=== PATIENT | female | born 1995 | race Caucasian/White ===

== ENCOUNTER → 2016-08-13 11:30 | Observation (INO) ==
--- NOTE | 2016-08-12 19:46 | OB/GYN History & Physical ---
Date of Encounter: 08/12/16 Time of Encounter: 19:38 Assessment and Plan (1) before 20 weeks with retention of fetus Current visit: No Status: Acute Pt monitoring cytotec induction pain control IVF, supportive care (2) demise Current visit: No Status: Acute (3) Second trimester Current visit: No Status: Acute (4) Spontaneous miscarriage Current visit: No Status: Acute History of Present Illness Chief complaint: demise HPI: Ms. Canales is a 21 year old female who presented to the ER saturday with hroughout the day severe cramping and abdominal pain. The pain started in the morning and was intermittent throughout the day decreasing in severity as the day went on. demise was confirmed by US in the ER. Prior to this pt denies any complications with this or previous , no history of abnormal PAP, abd surgery or STI. No drug or alcohol use. Pt here for passage of POC via cytotec induction. Pt denies headache, change in vision, CP, SOB, N/V , LE edema and has no other complaints at this time. Past Med Surg Social Fam HX - Past Medical History Medical history: no medical history Psychiatric history: no psych history - Past Surgical History Surgical History: no surgical history - Social History Smoking Status: Never smoker Smokeless Tobacco Status: No Alcohol use: none Drug use: none Obstetrical History - Pregnancies : 3 Para: 1 Ab's: 1 - History/Complications History/Complications: 14 week demise Medications and Allergies Ibuprofen [Advil] 400 mg PO Q6H PRN 10/25/15 [History] Allergies No Known Allergies Allergy (Verified 02/25/15 11:44) Review of System OB All systems PM: reviewed and no additional remarkable complaints except as stated Exam - Constitutional Constitutional: well developed, well nourished, no acute distress, average body habitus - HEENT HEENT: EOMI, Mucus Membranes Moist - Neck Neck exam: full ROM - Lungs Respiratory exam: CTAB - Cardiovascular Cardiovascular exam: RRR - Abdomen Abdomen: Present: bowel sounds normal, gravid - Extremities Extremities exam: warm - Uterus Uterus exam: Present: normal size Results All other labs normal.
[2016-08-12 21:12] LABS: Hematocrit 34.5 % (35.3-44.9); Hemoglobin 11.7 g/dL (11.5-15.4); Mean Corpuscular HGB Conc 33.9 g/dL (31.6-35.5); Mean Corpuscular Volume 85.4 fL (83.0-100.0); Mean Platelet Volume 10.3 fL (9.4-12.4); Platelet Count 174 K/mcL (140-400); Red Blood Count 4.04 M/mcL (3.82-4.97); Red Cell Distribution Width 13.8 % (11.5-14.5)
[2016-08-12] MEDS: miSOPROStol 100 MCG TABLET PO SCH (21:29)
[2016-08-13] MEDS: Ondansetron 4 MG/2 ML VIAL IVP PRN ×2 (01:07→07:42)
--- NOTE | 2016-08-13 01:34 | OB Labor Progress Note ---
Date of Encounter: 08/13/16 Time of Encounter: 01:33 Labor Progress Note - Subjective Subjective: Pt has had more severe cramping and had Dilaudid that caused nausea. - Heart Tones Heart Tones: No - Interventions Interventions: will give ROLL TENSION TESTER - Plan Plan: Cont. cytotec.
[2016-08-13] MEDS: miSOPROStol 100 MCG TABLET PO SCH (04:16)
--- NOTE | 2016-08-13 05:37 | OB Labor Progress Note ---
Date of Encounter: 08/13/16 Time of Encounter: 05:35 Labor Progress Note - Subjective Subjective: Pt's pain has been a little better s/p ambiens. She has AUTO WINDER, she has been having some spotting. - Heart Tones Heart Tones: none - Interventions Interventions: S/p cytotec 600 mg x 2, last at 04:19 - Plan Plan: Cont. induction of 14 week demise.
--- NOTE | 2016-08-13 07:46 | Discharge Summary ---
Outpatient Proc Discharge Plan - Plan Prescriptions: Ibuprofen [Motrin] 600 mg PO Q6HR PRN #40 tablet PRN Reason: cramping ClonazePAM [Klonopin] 0.5 mg PO BID PRN #20 tablet PRN Reason: anxiety/grief Norgestimate-Ethinyl Estradiol [Ortho-Cyclen 28 Tablet] 1 each PO DAILY #1 tablet Home Medications: Ibuprofen [Advil] 400 mg PO Q6H PRN 10/25/15 [History] ClonazePAM [Klonopin] 0.5 mg PO BID PRN #20 tablet 08/13/16 [Rx] Ibuprofen [Motrin] 600 mg PO Q6HR PRN #40 tablet 08/13/16 [Rx] Norgestimate-Ethinyl Estradiol [Ortho-Cyclen 28 Tablet] 1 each PO DAILY #1 tablet 08/13/16 [Rx]
[~2016-08-13 11:30] MED LIST: *HR* HYDROmorphone 2 MG/ML SYRINGE IVP PRN; *HR* Morphine 30 MG/ 30 ML PCA IVC PRN; Ibuprofen 600 MG TABLET PO PRN; Ringers Solution, Lactated 1,000 ML IVC SCH; miSOPROStol 100 MCG TABLET PO ONE; miSOPROStol 100 MCG TABLET PO SCH
[2016-08-13 11:39] VITALS: BP 106/55
== END | disposition home or self-care (01) ==
LOC: 1NENULAB
PROVIDERS: ADMIT Obstetrics & Gynecology; ATTEND Obstetrics & Gynecology

== ENCOUNTER 2017-09-04 21:28 | Observation (INO) ==
[2017-09-04] MEDS ORDERED: Ringers Solution, Lactated 1,000 ML ONE (22:25)
[2017-09-04] MEDS ORDERED: Ringers Solution, Lactated 1,000 ML IVC ONE (22:36)
--- NOTE | 2017-09-04 22:46 | OB/GYN Progress Note ---
Date of Encounter: 09/05/17 Time of Encounter: 22:37 - Assessment and Plan (1) 23 weeks gestation of Current Visit: Yes Status: Acute (2) uterine contractions in second trimester, antepartum Current Visit: Yes Status: Acute 1 liter bolus LR CBC Discharge home (3) NST (non-stress test) reactive on surveillance Current Visit: Yes Status: Acute Subjective - Subjective Principal diagnosis: contractions Interval history: Ms. Canales is a 22-year-old 011 at 23 weeks and 3 days gestation with an ANKUR of 12/29/17 by LMP. She presents this evening with complaints of contractions that started while she was at work. 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 She then went home, ate lunch, and went back to work and the contractions continued to be about 10 minutes apart. She drank about 60 ounces of water while at work but admits that she was busy running around, lifting residents, giving them baths, etc. She states since she has been here she hasn't felt many contractions. Last intercourse was this morning. She endorses good FM and denies LOF, vaginal bleeding, TATUM, blurry vision, RUQ pain. Antepartum ROS: movement normal, contractions Objective - Vital Signs Vital Signs: Intake and Output 09/04/17 09/04/17 09/04/17 07:59 15:59 23:59 Other: Weight 81 kg Patient Weight 09/04/17 23:59 Weight 81 kg - Exam FHR: auscultation normal, category 1 Auscultation: bilateral: normal Abdomen: Present: normal appearance, soft, gravid Uterus: Present: normal Comments: VE deferred
[2017-09-04 23:08] LABS: Basophils % 0.1 %; Eosinophils % 0.3 %; Hematocrit 31.2 % (35.3-44.9); Hemoglobin 10.6 g/dL (11.5-15.4); Immature Granulocytes % 0.5 % (0-4); Lymphocytes # 1.8 K/mcL (0.6-4.6); Lymphocytes % 17.2 %; Mean Corpuscular Hemoglobin 30.1 pg (28.0-33.3); Mean Corpuscular Volume 88.6 fL (83.0-100.0); Mean Platelet Volume 10.3 fL (9.4-12.4); Monocytes # 0.7 K/mcL (0.0-1.3); Neutrophils # 7.8 K/mcL (1.6-8.9); Platelet Count 195 K/mcL (140-400); Red Blood Count 3.52 M/mcL (3.82-4.97); Red Cell Distribution Width 13.4 % (11.5-14.5); Segmented Neutrophils % 74.9 %
[2017-09-04 23:09] LABS: Amphetamine Screen,Urine Negative ng/mL (Cutoff=1000); Barbiturate Screen,Urine Negative ng/mL (Cutoff=200); Benzodiazepines Screen,Urine Negative ng/mL (Cutoff=200); Cannabinoid Screen,Urine Negative ng/mL (Cutoff = 50); Cocaine Screen,Urine Negative ng/mL (Cutoff= 300); Opiate Screen,Urine Negative ng/mL (Cutoff=300); Phencyclidine Screen,Urine Negative ng/mL (Cutoff=25)
== END 2017-09-04 23:30 | disposition home or self-care (01) ==
LOC: 1NENULAB
PROVIDERS: ADMIT Advanced Practice Midwife; ATTEND Advanced Practice Midwife

== ENCOUNTER 2017-11-29 04:34 | Observation (INO) ==
[2017-11-28 17:08] LABS: Bilirubin,Urine Negative (Negative); Blood,Urine Moderate (Negative); Clarity,Urine Cloudy (Clear); Color,Urine Yellow (Yellow); Glucose,Urine (UA) Normal (Normal); Ketones,Urine Negative (Negative); Leukocyte Esterase,Urine Moderate (Negative); Nitrite,Urine Negative (Negative); PH,Urine 6.5 pH Units (5.0-8.0); Protein,Urine Trace mg/dL (Neg-Trace); Specific Gravity,Urine 1.027 (1.010-1.025); Urobilinogen,Urine Normal (Normal)
[2017-11-28 17:10] LABS: Bacteria,Urine Moderate per hpf (None-Few); Hyaline Casts,Urine Few per lpf (None-Few); Squamous Epithelial Cell,Urine Many per lpf (None-Few); WBC,Urine 15-30 per hpf (0-3)
[2017-11-28 17:27] LABS: Amphetamine Screen,Urine Negative ng/mL (Cutoff=1000); Barbiturate Screen,Urine Negative ng/mL (Cutoff=200); Benzodiazepines Screen,Urine Negative ng/mL (Cutoff=200); Cannabinoid Screen,Urine Negative ng/mL (Cutoff = 50); Cocaine Screen,Urine Negative ng/mL (Cutoff= 300); Opiate Screen,Urine Negative ng/mL (Cutoff=300); Phencyclidine Screen,Urine Negative ng/mL (Cutoff=25)
--- NOTE | 2017-11-28 22:13 | OB/GYN History & Physical ---
Date of Encounter: 11/28/17 Time of Encounter: 22:10 Assessment and Plan (1) 35 weeks gestation of Current visit: Yes Status: Acute (2) Uterine contractions Current visit: Yes Status: Acute Admit to labor and delivery Expectant management Penicillin for GBS unknown Nubain if desired Epidural if progresses past 6 cm History of Present Illness Chief complaint: Contractions HPI: Ms. Canales is a 22 year old female 35+4 weeks gestation presents to triage with complaints of contractions since 3:15 this afternoon. He should not reports good movement, denies vaginal bleeding or leaking of fluid. care with Dr. Dumont. course complicated with diet-controlled gestational diabetes. Labs: A+, rubella immune, GBS unknown, all other serologies negative Past Med Surg Social Fam HX - Past Medical History Medical history: no medical history Psychiatric history: no psych history - Past Surgical History Surgical History: no surgical history Additional surgical history: IUD removal - Social History Smoking Status: Never smoker Smokeless Tobacco Status: No Alcohol use: none, rarely Drug use: none - Family History Mother Adopted: [place]: katie peoples Family Member Ethnicity: Non- Twin of Family Member: Yes, Fraternal Living Status: Still Living Hx Family Cardiac Disorders: No Hx Family Respiratory Disorders: No Hx Family Cancer: No Hx Family GI Disorders: No Hx Family Genitourinary Disorders: No Hx Family Endocrine Disorder: No Hx Family Musculoskeletal Disorders: No Hx Family Neuromuscular Disorders: No Hx Family Neurologic Disorders: No Hx Family HEENT Disorders: No Hx Family Autoimmune Disorders: No Hx Family Reproductive Disorders: No Hx Family Psychosocial Disorders: No Hx Family Medical Disorders: No Obstetrical History - Pregnancies : 3 Para: 1 Term: 1 : 0 Ab's: 1 Livin Medications and Allergies Ibuprofen [Advil] 400 mg PO Q6H PRN 10/25/15 [History] Ibuprofen [Motrin] 600 mg PO Q6HR PRN #40 tablet 08/13/16 [Rx] Norgestimate-Ethinyl Estradiol [Ortho-Cyclen 28 Tablet] 1 each PO DAILY #1 tablet 08/13/16 [Rx] clonazePAM [Clonazepam] 0.5 mg PO BID #20 tab.rapdis 08/13/16 [Rx] clonazePAM [Klonopin] 0.5 mg PO BID PRN #20 tablet 08/13/16 [Rx] Ibuprofen [Motrin] 600 mg PO Q8HR PRN #12 tab 01/04/17 [Rx] GuaiFENesin/Dextromethorphan [Robitussin/DM] 5 ml PO Q6HR PRN #120 ml 05/29/17 [ Rx] 3 Allergy/AdvReac Type Severity Reaction Status Date / Time No Known Allergies Allergy Verified 02/25/15 11:44 Exam - Constitutional Constitutional: well developed, well nourished, no acute distress, average body habitus - Neck Neck exam: full ROM - Lungs Respiratory exam: CTAB - Cardiovascular Cardiovascular exam: RRR - Abdomen Abdomen: Present: gravid, non tender - Extremities Extremities exam: normal capillary refill, normal inspection - Vagina Vagina: Present: normal moisture - Cervix Dilation: 4 Effacement: 80 Station: -2 Results Abnormal lab results Urine Clarity Cloudy (Clear) A 11/28/17 16:47 Ur Specific [place] 1.027 (1.010-1.025) H 11/28/17 16:47 Urine Blood Moderate (Negative) H 11/28/17 16:47 Ur Leukocyte Esterase Moderate (Negative) H 11/28/17 16:47 Urine Microscopic RBC 5-15 per hpf (0-3) H 11/28/17 16:47 Urine Microscopic WBC 15-30 per hpf (0-3) H 11/28/17 16:47 Ur Squamous Epith Cells Many per lpf (None-Few) H 11/28/17 16:47 Urine Bacteria Moderate per hpf (None-Few) H 11/28/17 16:47 Ur Culture Indicated? NO. (NO) A 11/28/17 16:47 All other labs normal. - VTE Reasons for not Prescribing Prophylaxis: Treatment not Indicated - Low risk for VTE
[2017-11-28 22:59] LABS: Basophils % 0.2 %; Eosinophils % 0.4 %; Hematocrit 36.1 % (35.3-44.9); Hemoglobin 12.1 g/dL (11.5-15.4); Immature Granulocytes % 0.4 % (0-4); Lymphocytes % 22.1 %; Mean Corpuscular HGB Conc 33.5 g/dL (31.6-35.5); Mean Corpuscular Hemoglobin 28.9 pg (28.0-33.3); Mean Corpuscular Volume 86.2 fL (83.0-100.0); Mean Platelet Volume 10.4 fL (9.4-12.4); Monocytes # 0.7 K/mcL (0.0-1.3); Monocytes % 7.6 %; Neutrophils # 6.3 K/mcL (1.6-8.9); Platelet Count 171 K/mcL (140-400); Red Blood Count 4.19 M/mcL (3.82-4.97); Red Cell Distribution Width 14.4 % (11.5-14.5); Segmented Neutrophils % 69.3 %
[~2017-11-29 04:34] MED LIST changes: -*HR* HYDROmorphone 2 MG/ML SYRINGE IVP PRN; -*HR* Morphine 30 MG/ 30 ML PCA IVC PRN; +*HR* Nalbuphine 10 MG/ML AMPUL IVP PRN; +Famotidine 20 MG/2 ML VIAL IVP PRN; -Ibuprofen 600 MG TABLET PO PRN; +Metoclopramide 10 MG/2 ML VIAL IVP PRN; +Naloxone 0.4 MG/ML INJ IVP PRN; +Ondansetron 4 MG/2 ML VIAL IVP PRN; +Penicillin G Potassium 2,500,000 UNIT in 0.9 % Sodium Chloride 100 ML IVPB SCH; +Penicillin G Potassium 5,000,000 UNIT in 0.9 % Sodium Chloride Mini Bag 100 ML IVPB ONE; -miSOPROStol 100 MCG TABLET PO ONE; -miSOPROStol 100 MCG TABLET PO SCH
--- NOTE | 2017-11-29 07:10 | Discharge Summary ---
Date of Encounter: 11/29/17 Time of Encounter: 07:09 - Discharge Diagnosis (1) 35 weeks gestation of Priority: Primary Status: Acute (2) Uterine contractions Priority: Primary Status: Acute Comments: Cervical exam remains unchanged since 0100. Pt has been sleeping most of night, Pt lives 5 minutes away. Discharged to home with labor and when to return precautions. Pt and in agreement with plan and verbalize understanding - Discharge Medications Allergies/Adverse Reactions: 3 Allergy/AdvReac Type Severity Reaction Status Date / Time No Known Allergies Allergy Verified 02/25/15 11:44 Data Procedures and tests throughout hospitalization: Laboratory Tests 11/28/17 11/28/17 11/28/17 16:47 16:47 22:40 WBC 9.1 RBC 4.19 Hgb 12.1 Hct 36.1 MCV 86.2 MCH 28.9 MCHC 33.5 RDW 14.4 Plt Count 171 MPV 10.4 Immature Gran % 0.4 Seg Neutrophils % 69.3 Lymphocytes % 22.1 Monocytes % 7.6 Eosinophils % 0.4 Basophils % 0.2 Neutrophils # 6.3 Lymphocytes # 2.0 Monocytes # 0.7 Eosinophils # 0.0 Basophils # 0.0 Urine Color Yellow Urine Clarity Cloudy A Urine pH 6.5 Ur Specific [place] 1.027 H Urine Protein Trace Urine Glucose (UA) Normal Urine Ketones Negative Urine Blood Moderate H Urine Nitrite Negative Urine Bilirubin Negative Urine Urobilinogen Normal Ur Leukocyte Esterase Moderate H Urine Microscopic RBC 5-15 H Urine Microscopic WBC 15-30 H Ur Squamous Epith Cells Many H Urine Bacteria Moderate H Hyaline Casts Few Ur Culture Indicated? NO. A Urine Opiates Screen Negative Ur Barbiturates Screen Negative Ur Phencyclidine Scrn Negative Ur Amphetamines Screen Negative U Benzodiazepines Scrn Negative Urine Cocaine Screen Negative U Marijuana (THC) Screen Negative Labs on day of discharge: Labs from last 24 hours 11/28/17 11/28/17 11/28/17 22:40 16:47 16:47 WBC 9.1 RBC 4.19 Hgb 12.1 Hct 36.1 MCV 86.2 MCH 28.9 MCHC 33.5 RDW 14.4 Plt Count 171 MPV 10.4 Immature Gran % 0.4 Seg Neutrophils % 69.3 Lymphocytes % 22.1 Monocytes % 7.6 Eosinophils % 0.4 Basophils % 0.2 Neutrophils # 6.3 Lymphocytes # 2.0 Monocytes # 0.7 Eosinophils # 0.0 Basophils # 0.0 Urine Color Yellow Urine Clarity Cloudy A Urine pH 6.5 Ur Specific [place] 1.027 H Urine Protein Trace Urine Glucose (UA) Normal Urine Ketones Negative Urine Blood Moderate H Urine Nitrite Negative Urine Bilirubin Negative Urine Urobilinogen Normal Ur Leukocyte Esterase Moderate H Urine Microscopic RBC 5-15 H Urine Microscopic WBC 15-30 H Ur Squamous Epith Cells Many H Urine Bacteria Moderate H Hyaline Casts Few Ur Culture Indicated? NO. A Urine Opiates Screen Negative Ur Barbiturates Screen Negative Ur Phencyclidine Scrn Negative Ur Amphetamines Screen Negative U Benzodiazepines Scrn Negative Urine Cocaine Screen Negative U Marijuana (THC) Screen Negative Date of admission: 11/28/17 16:24 Primary care physician: PCP NONE Discharging clinician: Miguelina Mcwilliams - Patient Status Disposition: Home, Self-Care Condition: Good Functional capacity at discharge: independent ambulation - Discharge Instructions Follow Up With: NONE,PCP [Primary Care Provider] - - Diet and Activity Activity: resume usual activities as tolerated Diet: regular diet Hospital Course IN[facility]OC[facility]ATE Hospital course: Admitted and observed for labor cervical change to 5cm, but not further change on serial exams. Discharged home Time Attestation: Total time spent providing and/or coordinating discharge services: Time Spent: Less than 30 minutes Exam - Constitutional General appearance IM: A&O X 3 - Respiratory Respiratory exam: Present: CTAB - GI/Abdominal GI/Abdominal exam IM: soft - Extremities Exam Extremities exam IM: Present: normal capillary refill, normal inspection - Neurological Exam Neurological exam: normal gait, oriented X3 - Other Additional findings: cervix 5/80/-2 - VTE Reasons for not Prescribing Prophylaxis: Treatment not Indicated - Low risk for VTE
== END 2017-11-29 07:31 | disposition home or self-care (01) ==
LOC: 1NENULAB
PROVIDERS: ADMIT Obstetrics & Gynecology; ATTEND Obstetrics & Gynecology

== ENCOUNTER 2017-11-30 14:18 | Observation (INO) ==
--- NOTE | 2017-11-30 15:12 | OB/GYN Progress Note ---
Date of Encounter: 11/30/17 Time of Encounter: 15:09 - Assessment and Plan (1) uterine contractions in third trimester, antepartum Current Visit: Yes Status: Acute Pt not currently feeling contractions. SSE with negative nitrazine and negative pooling. Small amount thick mucus noted on exam. SVE unchanged from yesterday. (2) 35 weeks gestation of Current Visit: No Status: Acute (3) NST (non-stress test) reactive on surveillance Current Visit: No Status: Acute Subjective - Subjective Interval history: 22 year-old presenting at 35w6d for repeat celestone following PTL 2 days ago. SHe was 5cm dilated at last check. Today she denies contractions but reports a small amount of clear discharge that was more than normal mucus that started around 8pm last evening. She denies large gushes of fluid or vaginal bleeding. Good FM. Antepartum ROS: loss of fluid, movement normal, no vaginal bleeding, no contractions Objective - Exam FHR: category 1 FHR comments: NST reactive, irregular contractions on toco not felt by pt Abdomen: Present: soft, gravid Uterus: Absent: tenderness Cervical dilation: 4-5 Cervix effacement: 80 station: -1
[2017-11-30] MEDS ORDERED: Betamethasone Acet/SodPhos 6 MG/ML MDV IM SCH (15:15)
== END 2017-11-30 15:37 | disposition home or self-care (01) ==
LOC: LANDD 14:18 → 1NENULAB 14:18
PROVIDERS: ADMIT Registered Nurse; ATTEND Obstetrics & Gynecology

== ENCOUNTER 2017-12-26 10:00 | Inpatient (IN) ==
[2017-12-26] MEDS ORDERED: Ondansetron 4 MG/2 ML VIAL IVP PRN (10:27)
[2017-12-26] MEDS ORDERED: Famotidine 20 MG/2 ML VIAL IVP PRN (10:27)
[2017-12-26] MEDS ORDERED: Naloxone 0.4 MG/ML INJ IVP PRN (10:27)
[2017-12-26] MEDS ORDERED: Metoclopramide 10 MG/2 ML VIAL IVP PRN (10:27)
[2017-12-26] MEDS ORDERED: *HR* Nalbuphine 10 MG/ML AMPUL IVP PRN ×2 (10:27→17:40)
[2017-12-26] MEDS ORDERED: Ringers Solution, Lactated 1,000 ML IVC SCH (10:30)
[2017-12-26] MEDS ORDERED: Oxytocin 20 units/ LR 1000 mL 20 UNIT/1,000 ML BAG IVC SCH ×2 (10:45→18:50)
[2017-12-26 11:17] LABS: Basophils % 0.3 %; Eosinophils % 0.6 %; Hematocrit 37.1 % (35.3-44.9); Hemoglobin 12.4 g/dL (11.5-15.4); Immature Granulocytes % 0.7 % (0-4); Lymphocytes # 1.7 K/mcL (0.6-4.6); Lymphocytes % 24.7 %; Mean Corpuscular HGB Conc 33.4 g/dL (31.6-35.5); Mean Corpuscular Hemoglobin 29.3 pg (28.0-33.3); Mean Corpuscular Volume 87.7 fL (83.0-100.0); Mean Platelet Volume 10.9 fL (9.4-12.4); Monocytes # 0.5 K/mcL (0.0-1.3); Monocytes % 7.5 %; Neutrophils # 4.6 K/mcL (1.6-8.9); Platelet Count 164 K/mcL (140-400); Red Blood Count 4.23 M/mcL (3.82-4.97); Red Cell Distribution Width 15.2 % (11.5-14.5); Segmented Neutrophils % 66.2 %
--- NOTE | 2017-12-26 11:17 | OB/GYN History & Physical ---
Date of Encounter: 12/26/17 Time of Encounter: 11:12 Assessment and Plan (1) 39 weeks gestation of Current visit: Yes Status: Acute Admit to History of Present Illness Chief complaint: Induction of Labor HPI: Ms. Canales is a 22 year old at 39 wees 4 days gestation that arrives to labor and delivery for IOL due to GDM (diet controlled). She has had no complications with this and denies any problems with her previous and delivery. She denies headache, visual disturbances, epigastric pain, and LOF/vaginal bleeding. GBS negative Hep B negative RPR neg Varicella immune Rubella immune HIV NR Blood type A+ Past Med Surg Social Fam HX - Past Medical History Medical history: no medical history Psychiatric history: no psych history - Past Surgical History Surgical History: no surgical history Additional surgical history: IUD removal - Social History Smoking Status: Never smoker Smokeless Tobacco Status: No Alcohol use: none Drug use: none - Family History Mother Adopted: No Family Member Ethnicity: Non- Twin of Family Member: Yes, Fraternal Living Status: Still Living Hx Family Cardiac Disorders: No Hx Family Respiratory Disorders: No Hx Family Cancer: No Hx Family GI Disorders: No Hx Family Endocrine Disorder: No Hx Family Neuromuscular Disorders: No Hx Family Neurologic Disorders: No Hx Family HEENT Disorders: No Hx Family Autoimmune Disorders: No Maternal Grandmother Family Member Ethnicity: Non- Living Status: Age at : 56 Cause of : color cancer Hx Family Cancer: Yes (colon cancer) Obstetrical History - Pregnancies : 3 Para: 1 Term: 1 : 0 Ab's: 1 Livin Medications and Allergies Vit Calc,Iron,Folic [ Vitamins] 1 tab PO DAILY 11/30/17 [ History] 3 Allergy/AdvReac Type Severity Reaction Status Date / Time No Known Allergies Allergy Verified 11/30/17 14:52 Review of System OB All systems PM: reviewed and no additional remarkable complaints except as stated Exam - Constitutional Constitutional: well developed, well nourished, no acute distress - HEENT HEENT: Normocephaly, Mucus Membranes Moist - Neck Neck exam: full ROM - Lungs Respiratory exam: CTAB - Cardiovascular Cardiovascular exam: RRR, +S1, +S2 - Abdomen Abdomen: Present: bowel sounds normal, gravid, non tender - Extremities Extremities exam: normal capillary refill, normal inspection, radial pulses palpable and symmetrical Deep Tendon Reflex Grade: 1+ Diminished - Vagina Vagina: Present: normal moisture - Cervix Dilation: 5 Effacement: 80 Station: -1 - Uterus Uterus exam: Present: normal size, normal contour. Absent: tender - Anus/Rectum Anus/Rectum: Present: normal perianal skin Results All other labs normal. - VTE Reasons for not Prescribing Prophylaxis: Treatment not Indicated - Low risk for VTE
[2017-12-26 11:35] LABS: Amphetamine Screen,Urine Negative ng/mL (Cutoff=1000); Barbiturate Screen,Urine Negative ng/mL (Cutoff=200); Benzodiazepines Screen,Urine Negative ng/mL (Cutoff=200); Cannabinoid Screen,Urine Negative ng/mL (Cutoff = 50); Cocaine Screen,Urine Negative ng/mL (Cutoff= 300); Opiate Screen,Urine Negative ng/mL (Cutoff=300); Phencyclidine Screen,Urine Negative ng/mL (Cutoff=25)
[2017-12-26] MEDS ORDERED: Epidural Premix (fent/bupiv) 110 ML EP SCH (14:45)
[2017-12-26] MEDS ORDERED: *HR* FentaNYL (PF) 100 MCG/2 ML VIAL EP ONE (14:45)
[2017-12-26] MEDS ORDERED: Bupivacaine-MPF 0.25% 10 ML VIAL EP ONE (14:45)
[2017-12-26] MEDS ORDERED: *HR* FentaNYL (PF) 100 MCG/2 ML VIAL ONE (14:48)
[2017-12-26] MEDS ORDERED: Lidocaine -MPF 1% 5 ML AMPUL ONE (14:48)
[2017-12-26] MEDS ORDERED: Bupivacaine-MPF 0.25% 10 ML VIAL ONE (14:48)
--- NOTE | 2017-12-26 15:29 | Anesthesia Evaluation PreOp ---
Date of Encounter: 12/26/17 Time of Encounter: 14:59 - Past History Planned Operation: JOELLEN Cardiac History: Denies any Significant Hx Pulmonary History: Denies Any Significant HX BOOK AUTHOR History: Denies Any Significant HX Other Medical History: Denies Any Significant HX Anesthesia History: No Prior Anesthetic Complications : Yes Test: Positive Alcohol Use: none Drug use: none Medications and Allergies Vit Calc,Iron,Folic [ Vitamins] 1 tab PO DAILY 11/30/17 [ History] 3 Allergy/AdvReac Type Severity Reaction Status Date / Time No Known Allergies Allergy Verified 11/30/17 14:52 - Meds/Allergy Pre-op Review Medications Reviewed: Yes Allergies Reviewed: Yes Beta Blockers on Current Med List: No Anesthesia Results - Labs 12/26/17 10:52 Anesthesia Exam 140/95, HR 77, RR 18 O2 Sat Height 1.73 m Weight 86.6 kg NPO (# of Hours): solids > 5 hours Pain Scale: 5 Pain Scale Used: Guillermo (Faces) - HEENT Pupil (Motor): Pupils equal Mallampati: II Teeth: Normal Oral Opening: Greater than 3 - BOOK AUTHOR LOC: Oriented BOOK AUTHOR Motor: Normal RUE, Normal LUE, Normal RLE, Normal LLE, Normal Face BOOK AUTHOR Sensory: Normal: RUE, LUE, RLE, LLE, Face - Cardiac Rhythm: Regular Murmur: None - Pulmonary Breath Sounds: bilateral Clear Respiratory Effort: Symmetrical Anesthesia Assess/Plan ASA Score: 2 Modified Anderson Scale for Level of Consciousness: Cooperative, oriented, and tranquil Anesthetic Plan: Regional Autologous Blood: No Monitoring Plan: Standard Monitors Recovery Plan: Other
--- NOTE | 2017-12-26 15:31 | Anesthesia Procedures ---
Date of Encounter: 12/26/17 Time of Encounter: 15:29 Procedures: Anesthesia - Epidural/Spinal Patient ID/Chart reviewed: Yes Patient examined: Yes OB Eval: Gestational age: 39 weeks 4 days OB Eval: : 3 OB Eval: Hx Para: 1 OB Eval: Dilated at (cm): 5 OB Eval: Contractions: Non-stressed pattern Consent Obtained: Yes Supplemental Oxygen: None/Room Air Site Prep: Aseptic Technique, Sterile prep and drape, Povidone-Iodine 1% Patient position: upright Local Anesthetic: Lidocaine 1% Amount of Local Anesthetic used: 3 Touhy Needle Gauge: 18 Touhy Needle Depth (cm): 5 Catheter Depth at Skin (cm): 10 Test Dose (1.5% Lido + Epi): Volume given (mls): 5 Test Dose Result: Negative Loading Dose: 0.25% Marcaine (mls): 5 Loading Dose: Fentanyl (mcg): 100 Loading Dose Administered: Thru Catheter Infusion Med: 0.125% Bupivacaine w/ 2 mcg/ml Fentanyl Infusion Rate (mls/hr): 14 (w/ demand bolus us 5mL q30min PRN) Catheter Secured in Place: Tegaderm, Tape Interspace Used: L4-L5 Loss of Resistance (WILLIAMS): Yes Blood: No CSF: No Paresthesia: No Procedure: successful on 1st attempt; patient tolerated procedure well; VSS Vitals + FHT's: please see Nury LUCERO's electronic records for VS entry
--- NOTE | 2017-12-26 16:04 | OB Labor Progress Note ---
Date of Encounter: 12/26/17 Time of Encounter: 16:01 Labor Progress Note - Subjective Subjective: Patient resting in bed comfortably with epidural in place - Vital Signs Vital Signs: VSS - Cervix Cervix: 5/70/0 - Heart Tones Heart Tones: 145 moderate variability category I tracing - [place]: Contractions every 2-3 minutes - Interventions Interventions: AROM for moderate amount of clear fluid. Patient and fetus tolerated well. - Plan Plan: Continue routine labor management GBS negative Continue pitocin infusion Anticipate vaginal delivery POC per consult with Dr Good
[2017-12-26] MEDS ORDERED: *HR* Nalbuphine 20 MG/ML AMPUL IVP PRN (17:39)
--- NOTE | 2017-12-26 17:39 | OB/GYN Procedure Note ---
Delivery - Delivery Date: 12/26/17 Provider: Tresa Posey Intrapartum events: none Delivery induction: oxytocin Delivery augmentation: rupture of membranes Delivery monitor: external FHT, external uterine Anesthesia: epidural Quantitated Blood Loss: 75 - Infant (s) Infant A Delivery Date: 12/26/17 Infant Delivery Time: 17:17 Presentation: vertex, compound Position: OA Route of delivery: Gender: Male Viability: Viable Weight Gram: 3.89 kg at 1 minute: 8 at 5 mins: 9 Shoulder Dystocia: not encountered Placenta: spontaneous Cord: 3 umbilical vessels - Repair Episiotomy: none Laceration Description: None - Complications Delivery complications: none Delivery comments: Patient began coached pushing to of viable, vigorous male in the direct OA position with a compound right hand. No nuchal, no shoulder, no meconium encountered. Infant placed on maternal abdomen, cord double clamped and cut with assistance of father after pulsations ceased. Apgars 8 and 9 at one and five minutes of age respectively. Placenta delivered spontaneously and appears grossly intact upon inspection; 3 vessel cord. Upon perineal inspection , no lacerations are noted. EBL 75mL. Fundus firm and u/1 after delivery with scant bleeding. Patient and infant stable in recovery for [address] Good notified of delivery. - Disposition Mom disposition: stable in LDR disposition: stable in LDR
[2017-12-26] MEDS ORDERED: miSOPROStol 100 MCG TABLET PO ONE ×2 (18:06)
[2017-12-26] MEDS ORDERED: Oxytocin 20 units/ LR 1000 mL 20 UNIT/1,000 ML BAG IVC ONE (18:50)
[2017-12-26] MEDS ORDERED: Sennosides 8.6 MG TABLET PO PRN (18:50)
[2017-12-26] MEDS ORDERED: Benzocaine/Menthol 56 GM AEROSOL SPRAY TP PRN (18:50)
[2017-12-26] MEDS ORDERED: Measles/Mumps/Rubella Vacc 0.5 ML VIAL SQ PRN (18:50)
[2017-12-26] MEDS ORDERED: Acetaminophen 325 MG TABLET PO PRN (18:50)
[2017-12-27] MEDS: Ibuprofen 600 MG TABLET PO PRN ×2 (00:41→15:28)
[2017-12-27 07:47] VITALS: BP 111/77
[2017-12-27] MEDS ORDERED: Prenatal Vit/FA 1 EACH TABLET PO SCH (09:00)
--- NOTE | 2017-12-27 09:11 | Discharge Summary ---
Date of Encounter: 12/27/17 Time of Encounter: 09:04 - Discharge Diagnosis (1) Vaginal delivery Priority: Primary Status: Acute Comments: Pain well controlled with by mouth pain meds Tolerating regular diet Voiding independently Passing flatus and has had BM Lochia moderate Vital signs stable Discharge today (2) Breast feeding status of mother Priority: Secondary Status: Acute Comments: Community resources provided - Discharge Medications Prescriptions: Ibuprofen [Motrin] 600 mg PO Q6HR PRN #30 tablet PRN Reason: Cramping Docusate [Colace] 100 mg PO BID #30 capsule Home Medications: Vit Calc,Iron,Folic [ Vitamins] 1 tab PO DAILY 11/30/17 [ History] Acetaminophen [Tylenol] 650 mg PO Q6HR PRN tablet 12/27/17 [Rx] Benzocaine/Menthol [place] [Dermoplast [place]] 1 appl TP QID PRN aerosol 12/27/17 [Rx] Docusate [Colace] 100 mg PO BID #30 capsule 12/27/17 [Rx] Ibuprofen [Motrin] 600 mg PO Q6HR PRN #30 tablet 12/27/17 [Rx] Allergies/Adverse Reactions: 3 Allergy/AdvReac Type Severity Reaction Status Date / Time No Known Allergies Allergy Verified 11/30/17 14:52 Data Procedures and tests throughout hospitalization: Laboratory Tests 12/26/17 12/26/17 10:52 10:52 WBC 6.9 RBC 4.23 Hgb 12.4 Hct 37.1 MCV 87.7 MCH 29.3 MCHC 33.4 RDW 15.2 H Plt Count 164 MPV 10.9 Immature Gran % 0.7 Seg Neutrophils % 66.2 Lymphocytes % 24.7 Monocytes % 7.5 Eosinophils % 0.6 Basophils % 0.3 Neutrophils # 4.6 Lymphocytes # 1.7 Monocytes # 0.5 Eosinophils # 0.0 Basophils # 0.0 Urine Opiates Screen Negative Ur Barbiturates Screen Negative Ur Phencyclidine Scrn Negative Ur Amphetamines Screen Negative U Benzodiazepines Scrn Negative Urine Cocaine Screen Negative U Marijuana (THC) Screen Negative Ur Drug Screen Interp See Below Labs on day of discharge: Labs from last 24 hours 12/26/17 12/26/17 10:52 10:52 WBC 6.9 RBC 4.23 Hgb 12.4 Hct 37.1 MCV 87.7 MCH 29.3 MCHC 33.4 RDW 15.2 H Plt Count 164 MPV 10.9 Immature Gran % 0.7 Seg Neutrophils % 66.2 Lymphocytes % 24.7 Monocytes % 7.5 Eosinophils % 0.6 Basophils % 0.3 Neutrophils # 4.6 Lymphocytes # 1.7 Monocytes # 0.5 Eosinophils # 0.0 Basophils # 0.0 Urine Opiates Screen Negative Ur Barbiturates Screen Negative Ur Phencyclidine Scrn Negative Ur Amphetamines Screen Negative U Benzodiazepines Scrn Negative Urine Cocaine Screen Negative U Marijuana (THC) Screen Negative Ur Drug Screen Interp See Below Date of admission: 12/26/17 10:23 Primary care physician: Missy Rivera CNP Consults: 12/26/17 18:50 Consult to [employer] [CONS] Routine Comment: Vaginal delivery, consult needed Discharging clinician: Tresa George Anticipated date of discharge: 12/27/17 - Patient Status Disposition: Home, Self-Care Condition: Good Functional capacity at discharge: independent ambulation Overall status at discharge: patient is progressing back to baseline - Discharge Instructions Follow Up With: Missy Rivera CNP [Primary Care Provider] - Katie Dumont DO [Partnered Physician] - - Diet and Activity Activity: increase activity as tolerated Diet: regular diet Hospital Course Reason for admission: induction of labor, IUP at term Delivery: Episiotomy: none Laceration: none Other procedures: none complications: none Discharge diagnosis: IUP at term delivered baby: male Time Attestation: Total time spent providing and/or coordinating discharge services: Time Spent: Less than 30 minutes Exam - Constitutional Vitals: Temp Pulse Resp BP Pulse Ox 97.9 F 86 12 111/77 98 12/27/17 07:45 12/27/17 07:45 12/27/17 08:00 12/27/17 07:45 12/27/17 03:40 General appearance IM: A&O X 3 - Respiratory Respiratory exam: Present: CTAB - Cardiovascular Cardiovascular exam IM: Present: RRR, +S1, +S2 - GI/Abdominal GI/Abdominal exam IM: normal bowel sounds, no peritoneal signs - Rectal Rectal exam: deferred - Uterine Tone: Firm Uterus Position: At Umbilicus, Midline - Extremities Exam Extremities exam IM: Present: normal capillary refill, normal inspection, pedal edema, radial pulses palpable and symmetrical - Neurological Exam Neurological exam: alert, CN II-XII intact, normal gait, oriented X3, reflexes normal, no focal deficits, strengths equal and symetr throughout - Psychiatric Additional comments: Patient denies history of depression. Signs and symptoms of depression discussed with patient and partner and both verbalize understanding of when to seek help. - Other Additional findings: Breasts: Soft, nontender. Nipples intact without erythema.
[2017-12-27] MEDS ORDERED: Lanolin 7 G OINT...G. TP PRN (14:31)
== END 2017-12-27 18:22 | disposition home or self-care (01) | DRG 775 ==
LOC: 1NENULAB 10:23 → 1NENUOBS 20:00
PROVIDERS: ADMIT Advanced Practice Midwife; ATTEND Advanced Practice Midwife